=== PATIENT | male | born 1980 ===

== ENCOUNTER 2023-04-11 00:21 | Emergency (ER) | payer SELFPAY ==
[2023-04-11 00:43] VITALS: BP 103/66; PULSE 69; RESP 17; TEMP 36.9; O2SAT 97; BMI 19.9
== END 2023-04-11 03:00 | disposition left against medical advice (07) ==
PROVIDERS: Emergency Provider Emergency Medicine
DX: F33.1 Major depressive disorder, recurrent, moderate (principal)
CPT/HCPCS: 99281